=== PATIENT | female | born 1950 | race Caucasian/White ===

== ENCOUNTER 2019-12-23 23:37 | Inpatient (IN) | payer MEDICARE ==
[2019-12-24 00:43] LABS: Basophils # (A) 0.1 k/uL (0-0.2); Basophils % (A) 1 %; Eosinophils # (A) 0.1 k/uL (0-0.7); Eosinophils % (A) 1 %; HCT 40.6 % (34.0-46.0); HGB 12.7 gm/dL (11.4-16.0); Lymphocytes # (A) 1.3 k/uL (1.0-4.8); Lymphocytes % (A) 14 %; MCH 26.9 pg (25.0-35.0); MCHC 31.4 g/dL (31.0-37.0); MCV 85.9 fL (80.0-100.0); Monocytes # (A) 0.4 k/uL (0-1.0); Monocytes % (A) 4 %; Neutrophils # (A) 7.8 k/uL (1.3-7.7); Neutrophils % (A) 80 %; Platelet Count 284 k/uL (150-450); RBC 4.72 m/uL (3.80-5.40); RDW 13.2 % (11.5-15.5); WBC 9.7 k/uL (3.8-10.6)
[2019-12-24 00:52] LABS: Acetaminophen <10.0 ug/mL; African American GFR (CKD) 73 (>60 ml/min/1.73 sqM); Alcohol <10 mg/dL; Anion Gap 11 mmol/L; Blood Urea Nitrogen 17 mg/dL (7-17); Calcium 9.8 mg/dL (8.4-10.2); Carbon Dioxide 22 mmol/L (22-30); Chloride 106 mmol/L (98-107); Glucose 89 mg/dL (74-99); Non-African American GFR(CKD) 63 (>60 ml/min/1.73 sqM); Potassium 4.4 mmol/L (3.5-5.1); Salicylate <1.0 mg/dL; Sodium 139 mmol/L (137-145)
[2019-12-24 00:53] LABS: Appearance,Urine Clear (Clear); Bacteria,Urine Rare /hpf; Bilirubin,Urine Negative (Negative); Blood,Urine Negative (Negative); Color,Urine Yellow; Glucose,Urine (UA) Negative (Negative); Hyaline Casts,Urine 10 /lpf (0-2); Ketones,Urine 2+ (Negative); Leukocyte Esterase,Urine Trace (Negative); Mucus,Urine Moderate /hpf; Nitrite,Urine Negative (Negative); PH, Urine 5.5 (5.0-8.0); Protein,Urine 1+ (Negative); RBC,Urine 1 /hpf (0-5); Specific Gravity,Urine 1.019 (1.001-1.035); Squamous Epithelial Cell,Urine <1 /hpf (0-4); Urobilinogen,Urine <2.0 mg/dL (<2.0); WBC,Urine 6 /hpf (0-5)
[2019-12-24 01:01] LABS: Amphetamine Screen,Urine Not Detected (NotDetected); Barbiturate Screen,Urine Not Detected (NotDetected); Benzodiazepines Screen,Urine Not Detected (NotDetected); Cocaine Screen,Urine Not Detected (NotDetected); Methadone Screen, Urine Not Detected (NotDetected); Opiate Screen,Urine Not Detected (NotDetected); Oxycodone Screen, Urine Not Detected (NotDetected); Phencyclidine Screen,Urine Not Detected (NotDetected); Tricyclic Antidepressant,Urine Not Detected (NotDetected); Urn Cannabinoid Scrn Not Detected (NotDetected)
--- NOTE | 2019-12-24 02:18 | ED ---
Psych HPI - General Chief Complaint: Psychiatric Symptoms Stated Complaint: Mental Health Time Seen by Provider: 12/23/19 23:44 Source: family, RN notes reviewed, old records reviewed Mode of arrival: EMS Limitations: altered mental status - History of Present Illness Initial Comments: This is a 69-year-old female DF for evaluation patient poor historian secondary to not wanting to participating history taking, patient comes in for psychiatric evaluation by PD, secondary depression suicidal thoughts patient has no change in medications denies drug or alcohol abuse MD Complaint: suicidal ideation, feels depressed -: unknown Associated Psychiatric Symptoms: depression, suicidal ideation History of same: Yes Quality: intermittent Worsens With: none Associated Symptoms: denies other symptoms Treatments Prior to Arrival: placed on mental health hold If Self Harm: admits thoughts of self harm Review of Systems ROS Statement: Those systems with pertinent positive or pertinent negative responses have been documented in the HPI. ROS Other: All systems not noted in ROS Statement are negative. Past Medical History Past Medical History: Blood Disorder, CVA/TIA Additional Past Medical History / Comment(s): Bleeding ulcers History of Any Multi-Drug Resistant Organisms: None Reported Past Surgical History: No Surgical Hx Reported Past Psychological History: Depression Smoking Status: Former smoker Past Alcohol Use History: None Reported Past Drug Use History: None Reported General Exam General appearance: alert, in no apparent distress Head exam: Present: atraumatic, normocephalic, normal inspection Eye exam: Present: normal appearance, PERRL, EOMI. Absent: scleral icterus, conjunctival injection, periorbital swelling ENT exam: Present: normal exam, mucous membranes moist Neck exam: Present: normal inspection. Absent: tenderness, meningismus, lymphadenopathy Respiratory exam: Present: normal lung sounds bilaterally. Absent: respiratory distress, wheezes, rales, rhonchi, stridor Cardiovascular Exam: Present: regular rate, normal rhythm, normal heart sounds. Absent: systolic murmur, diastolic murmur, rubs, gallop, clicks GI/Abdominal exam: Present: soft, normal bowel sounds. Absent: distended, tenderness, guarding, rebound, rigid Extremities exam: Present: normal inspection, full ROM, normal capillary refill. Absent: tenderness, pedal edema, joint swelling, calf tenderness Back exam: Present: normal inspection Neurological exam: Present: alert, oriented X3, CN II-XII intact Psychiatric exam: Present: depressed, flat affect Skin exam: Present: warm, dry, intact, normal color. Absent: rash Course Vital Signs 12/23/19 23:43 Temperature 98.5 F Pulse Rate 79 Respiratory 14 Rate Blood Pressure 168/88 O2 Sat by Pulse 98 Oximetry - Reevaluation(s) Reevaluation #1: 12/24/19 03:19 Medical records reviewed Reevaluation #2: 12/24/19 03:19 Medical clear for psychiatric evaluation Medical Decision Making - Medical Decision Making 69 female seen and evaluated for psychiatric evaluation and treatment. Patient to be admitted to psychiatric unit for inpatient treatment and care - Lab Data Result diagrams: 12/24/19 00:34 12/24/19 00:34 Lab Results 12/24/19 12/24/19 12/24/19 Range/Units 00:23 00:34 00:34 WBC 9.7 (3.8-10.6) k/uL RBC 4.72 (3.80-5.40) m/uL Hgb 12.7 (11.4-16.0) gm/dL Hct 40.6 (34.0-46.0) % MCV 85.9 (80.0-100.0) fL MCH 26.9 (25.0-35.0) pg MCHC 31.4 (31.0-37.0) g/dL RDW 13.2 (11.5-15.5) % Plt Count 284 (150-450) k/uL Neutrophils % 80 % Lymphocytes % 14 % Monocytes % 4 % Eosinophils % 1 % Basophils % 1 % Neutrophils # 7.8 H (1.3-7.7) k/uL Lymphocytes # 1.3 (1.0-4.8) k/uL Monocytes # 0.4 (0-1.0) k/uL Eosinophils # 0.1 (0-0.7) k/uL Basophils # 0.1 (0-0.2) k/uL Sodium 139 (137-145) mmol/L Potassium 4.4 (3.5-5.1) mmol/L Chloride 106 (98-107) mmol/L Carbon Dioxide 22 (22-30) mmol/L Anion Gap 11 mmol/L BUN 17 (7-17) mg/dL Creatinine 0.93 (0.52-1.04) mg/dL Est GFR (CKD-EPI)AfAm 73 (>60 ml/min/1.73 sqM) Est GFR (CKD-EPI)NonAf 63 (>60 ml/min/1.73 sqM) Glucose 89 (74-99) mg/dL Calcium 9.8 (8.4-10.2) mg/dL Urine Color Yellow Urine Appearance Clear (Clear) Urine pH 5.5 (5.0-8.0) Ur Specific [place] 1.019 (1.001-1.035) Urine Protein 1+ H (Negative) Urine Glucose (UA) Negative (Negative) Urine Ketones 2+ H (Negative) Urine Blood Negative (Negative) Urine Nitrite Negative (Negative) Urine Bilirubin Negative (Negative) Urine Urobilinogen <2.0 (<2.0) mg/dL Ur Leukocyte Esterase Trace H (Negative) Urine RBC 1 (0-5) /hpf Urine WBC 6 H (0-5) /hpf Ur Squamous Epith Cells <1 (0-4) /hpf Urine Bacteria Rare H (None) /hpf Hyaline Casts 10 H (0-2) /lpf Urine Mucus Moderate H (None) /hpf Salicylates <1.0 mg/dL Urine Opiates Screen Not Detected (NotDetected) Ur Oxycodone Screen Not Detected (NotDetected) Urine Methadone Screen Not Detected (NotDetected) Ur Propoxyphene Screen Not Detected (NotDetected) Acetaminophen <10.0 ug/mL Ur Barbiturates Screen Not Detected (NotDetected) U Tricyclic Antidepress Not Detected (NotDetected) Ur Phencyclidine Scrn Not Detected (NotDetected) Ur Amphetamines Screen Not Detected (NotDetected) U Methamphetamines Scrn Not Detected (NotDetected) U Benzodiazepines Scrn Not Detected (NotDetected) Urine Cocaine Screen Not Detected (NotDetected) U Marijuana (THC) Screen Not Detected (NotDetected) Serum Alcohol <10 mg/dL Disposition Clinical Impression: Depression, Suicidal ideation Disposition: TRANSFER TO PSYCH HOSP/UNIT Condition: Fair Is patient prescribed a controlled substance at d/c from ED?: No Referrals: None,Stated [Primary Care Provider] - 1-2 days
[2019-12-24] MEDS ORDERED: LORazepam 1 MG TAB PO PRN (06:00)
[2019-12-24] MEDS ORDERED: MAGNESIUM HYDROXIDE 2,400 MG/10 ML CUP PO PRN (08:00)
[2019-12-24] MEDS ORDERED: MAG HYDROX/AL HYDROX/SIMETH 30 ML CUP PO PRN (08:00)
[2019-12-24] MEDS ORDERED: ZIPRASIDONE 20 MG VIAL IM PRN (09:00)
[2019-12-24] MEDS: ACETAMINOPHEN TAB 325 MG TAB PO PRN (09:40)
[2019-12-24] MEDS: SERTRALINE 25 MG TAB PO SCH (11:58)
--- NOTE | 2019-12-24 12:07 | P.HP ---
Psychiatric H&P - . H&P Date: 12/24/19 History & Physical: Allergies Allergy/AdvReac Type Severity Reaction Status Date / Time Penicillins Allergy Rash/Hives Verified 12/24/19 04:44 Vital Signs Temp 97.8 F 12/24/19 04:47 Pulse 84 12/24/19 04:47 Resp 15 12/24/19 04:47 BP 169/89 12/24/19 04:47 Pulse Ox 98 12/24/19 04:47 Intake & Output 12/23/19 12/24/19 12/24/19 18:59 06:59 18:59 Weight 75.438 kg Laboratory Last Values WBC 9.7 k/uL (3.8-10.6) 12/24/19 00:34 RBC 4.72 m/uL (3.80-5.40) 12/24/19 00:34 Hgb 12.7 gm/dL (11.4-16.0) 12/24/19 00:34 Hct 40.6 % (34.0-46.0) 12/24/19 00:34 MCV 85.9 fL (80.0-100.0) 12/24/19 00:34 MCH 26.9 pg (25.0-35.0) 12/24/19 00:34 MCHC 31.4 g/dL (31.0-37.0) 12/24/19 00:34 RDW 13.2 % (11.5-15.5) 12/24/19 00:34 Plt Count 284 k/uL (150-450) 12/24/19 00:34 Neutrophils % 80 % 12/24/19 00:34 Lymphocytes % 14 % 12/24/19 00:34 Monocytes % 4 % 12/24/19 00:34 Eosinophils % 1 % 12/24/19 00:34 Basophils % 1 % 12/24/19 00:34 Neutrophils # 7.8 k/uL (1.3-7.7) H 12/24/19 00:34 Lymphocytes # 1.3 k/uL (1.0-4.8) 12/24/19 00:34 Monocytes # 0.4 k/uL (0-1.0) 12/24/19 00:34 Eosinophils # 0.1 k/uL (0-0.7) 12/24/19 00:34 Basophils # 0.1 k/uL (0-0.2) 12/24/19 00:34 Sodium 139 mmol/L (137-145) 12/24/19 00:34 Potassium 4.4 mmol/L (3.5-5.1) 12/24/19 00:34 Chloride 106 mmol/L (98-107) 12/24/19 00:34 Carbon Dioxide 22 mmol/L (22-30) 12/24/19:34 Anion Gap 11 mmol/L 12/24/19 00:34 BUN 17 mg/dL (7-17) 12/24/19 00:34 Creatinine 0.93 mg/dL (0.52-1.04) 12/24/19 00:34 Est GFR (CKD-EPI)AfAm 73 (>60 ml/min/1.73 sqM) 12/24/19 00:34 Est GFR (CKD-EPI)NonAf 63 (>60 ml/min/1.73 sqM) 12/24/19 00:34 Glucose 89 mg/dL (74-99) 12/24/19 00:34 Calcium 9.8 mg/dL (8.4-10.2) 12/24/19 00:34 Urine Color Yellow 12/24/19 00:23 Urine Appearance Clear (Clear) 12/24/19: Urine pH 5.5 (5.0-8.0) 12/24/19: Ur Specific [place] 1.019 (1.001-1.035) 12/24/19 00: Urine Protein 1+ (Negative) H 12/24/19 00: Urine Glucose (UA) Negative (Negative) 12/24/19: Urine Ketones 2+ (Negative) H 12/24/19 00: Urine Blood Negative (Negative) 12/24/19: Urine Nitrite Negative (Negative) 12/24/19: Urine Bilirubin Negative (Negative) 12/24/19: Urine Urobilinogen <2.0 mg/dL (<2.0) 12/24/19: Ur Leukocyte Esterase Trace (Negative) H 12/24/19 00: Urine RBC 1 /hpf (0-5) 12/24/19 00: Urine WBC 6 /hpf (0-5) H 12/24/19 00:23 Ur Squamous Epith Cells <1 /hpf (0-4) 12/24/19 00:23 Urine Bacteria Rare /hpf (None) H 12/24/19 00:23 Hyaline Casts 10 /lpf (0-2) H 12/24/19 00:23 Urine Mucus Moderate /hpf (None) H 12/24/19 00:23 Salicylates <1.0 mg/dL 12/24/19 00:34 Urine Opiates Screen Not Detected (NotDetected) 12/24/19 00:23 Ur Oxycodone Screen Not Detected (NotDetected) 12/24/19 00:23 Urine Methadone Screen Not Detected (NotDetected) 12/24/19 00:23 Ur Propoxyphene Screen Not Detected (NotDetected) 12/24/19 00:23 Acetaminophen <10.0 ug/mL 12/24/19 00:34 Ur Barbiturates Screen Not Detected (NotDetected) 12/24/19 00:23 U Tricyclic Antidepress Not Detected (NotDetected) 12/24/19 00:23 Ur Phencyclidine Scrn Not Detected (NotDetected) 12/24/19 00:23 Ur Amphetamines Screen Not Detected (NotDetected) 12/24/19 00:23 U Methamphetamines Scrn Not Detected (NotDetected) 12/24/19 00:23 U Benzodiazepines Scrn Not Detected (NotDetected) 12/24/19 00:23 Urine Cocaine Screen Not Detected (NotDetected) 12/24/19 00:23 U Marijuana (THC) Screen Not Detected (NotDetected) 12/24/19 00:23 Serum Alcohol <10 mg/dL 12/24/19 00:34 12/24/19 11:59 IDENTIFYING DATA: Patient is a 69-year-old female who currently lives with her daughter and her daughter's children. HPI: Patient presented to the hospital yesterday and was noted by ER report to be a poor historian and was brought in for depressive thoughts along with suicidal ideations. Patient was petitioned by who stated the patient "walked barefoot into the [place] and tried to throw herself down the stairs", petition also stated that patient "tried to jump out of the window". Patient was agreeable to be seen by continuity writer today and was somewhat directable however was demanding discharge several times at minimizing her symptoms. Patient did have difficulties expressing her thoughts and appeared to have expressive aphasia an claims that it is secondary to her previous CVA. She did mention that her daughter brought her in because her daughter was "having thoughts about me" and "want to get rid of me". She spoke about wanting to go back home and go into her "nunez in the yard". She also claims that she was looking at a picture of her and when speaking of her who 10 years ago states that she has been missing him more recently and was tearful at that time. Patient did have poor insight and judgment and was impulsive during the interview. Patient denies any suicidal or homicidal ideations intent or plan. At this time patient denies any auditory or visual hallucinations. Patient denies using any recreational drugs. PAST PSYCHIATRIC HISTORY: Patient states that she has suffered from depression in the past however denies any outpatient psychiatric follow-up or any medications in the past. She denies any psychiatric hospitalizations or any suicide attempts in the past. 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 Patient is currently and has a daughter whom she lives with and her daughter's kids. MENTAL STATUS EXAM: General Appearance: Patient appears to be stated age is alert, hostile/argumentative and difficult to redirect at times. Patient appears to have poor hygiene and grooming. Behavior: Patient is seated without any agitated behavior. Hostile with continuity writer. Speech: Difficulties with expressing her thoughts and certain words. Mood/Affect: Patient reports their mood is depressed, affect is congruent Suicidality/Homicidality: Patient denies having any homicidal ideation intent or plan. Denies any suicidal ideations intent or plan Perceptions: Patient denies any visual hallucinations and denies any auditory hallucinations Though content/process: There is no evidence of any delusional thought content and thought process is disjointed and patient has difficulty expressing her thoughts and saying certain words. Memory and concentration: AOX3, grossly intact for the purposes of this session. Can spell "WORLD" backwards Judgment and insight: poor/impulsive. STRENGTHS/WEAKNESSES: strength is that patient is resilient. Weakness is that patient has poor judgment and is impulsive INTELLECT: average IMPRESSIONS: Depressive disorder unspecified, rule out secondary to general medical condition. History of CVA PLAN: -Patient is admitted under in voluntary status to MHU for stabilization of psychiatric symptoms and safety. A second certification was completed and along with petition will be filed for court. Patient declined signing for any of the medications. -Medications : Will start patient on Zoloft 25 mg daily for mood/anxiety. Tr azodone 25 mg daily at bedtime for insomnia/mood. We'll consider adding mood stabilizer such as Depakote in the next few days if patient remains impulsive and labile. -Geodon PRN for agitation/aggression -Patient was informed of the risks, benefits and side effects of the medication and patient verbally consented to taking the medications. Patient signed med consent form and was placed in chart. -Internal Medicine consult to perform medical evaluation and physical. -NRT -not need this patient does not smoke -SW on board for discharge planning. Encourage patient to participate in groups to work on coping skills.
--- NOTE | 2019-12-24 13:05 | P.HPMEDMHU ---
History of Present Illness H&P Date: 12/24/19 Chief Complaint: aggression patient is a 69-year-old female with history of a stroke 2 years ago and gastric ulcers who was brought in on a petition by her daughter for walking barefoot in the [place], trying to throw herself down the stairs, and trying to jump out a window. She is sometimes better image the mental health unit. patient seen and examined at bedside.initially when I ask if we can talk she states she has problems speaking after her stroke. When asked her how long ago show quite she holds up 2 fingers. She confirms with me that her stroke was 2 years ago. She indicates that she has had trouble verbalizing Fen/Phen. I asked her if she had a history of diabetes which she denies, she denies history of high blood pressure, she denies history of high cholesterol. I asked her where they thought the stroke came from. She states that they didn't know. She is unable to tell me she is on any medications. She was able to indicate that she has a history of an ulcer. She is also able to indicate to me that she feels frustrated when trying to speak. She is able to answer yes no questions consistently. She denies any headaches, blurriness, nausea, vomiting, diarrhea, or constipation. She is alert and aware of her surroundings. She appears to communicate appropriately. Past Medical History Past Medical History: CVA/TIA Additional Past Medical History / Comment(s): Bleeding ulcers History of Any Multi-Drug Resistant Organisms: None Reported Past Surgical History: No Surgical Hx Reported Smoking Status: Former smoker - Past Family History Mother Family Medical History: No Reported History Medications and Allergies Home Medications Medication Instructions Recorded Confirmed Type No Known Home Medications 12/24/19 12/24/19 History Allergies Allergy/AdvReac Type Severity Reaction Status Date / Time Penicillins Allergy Rash/Hives Verified 12/24/19 04:44 Physical Exam Osteopathic Statement: *. No significant issues noted on an osteopathic structural exam other than those noted in the History and Physical/Consult. Vitals: Vital Signs Temp Pulse Pulse Resp BP BP Pulse Ox 12/24/19 04:47 97.8 F 84 15 169/89 98 12/23/19 23:43 98.5 F 79 14 168/88 98 Intake and Output 12/23/19 12/24/19 12/24/19 22:59 06:59 14:59 Other: Weight 75.438 kg General: non toxic, no distress, appears at stated age Derm: warm, dry Head: atraumatic, normocephalic, symmetric Eyes: EOMI, no lid lag, anicteric sclera Mouth: no lip lesion, mucus membranes moist Cardiovascular: S1S2 reg, no murmur, positive posterior tibial pulse bilateral, Lungs: CTA bilateral, no rhonchi, no rales , no accessory muscle use Abdominal: soft, nontender to palpation, no guarding, no appreciable organomegaly Ext: no gross muscle atrophy, no edema, no contractures Neuro: left sided facial droop, msucles strength 5/5 b/l UE and LE Psych: Alert, oriented, appropriate affect Cranial Nerve Examination - Cranial Nerves Cranial Nerve II- Optic: Intact Cranial Nerve III- Oculomotor: Intact Cranial Nerve IV- Trochlear: Intact Cranial Nerve V- Trigeminal: Intact Cranial Nerve - Abducens: Intact Cranial Nerve VII- Facial: Impaired Cranial Nerve VIII- Auditory: Intact Cranial Nerve IX- Glossopharyngeal: Intact Cranial Nerve X- Vagus: Intact Cranial Nerve XI- Accessory: Intact Cranial Nerve XII- Hypoglossal: Impaired Results CBC & Chem 7: 12/24/19 00:34 12/24/19 00:34 Labs: Abnormal Lab Results - Last 24 Hours (Table) 12/24/19 12/24/19 Range/Units 00:23 00:34 Neutrophils # 7.8 H (1.3-7.7) k/uL Urine Protein 1+ H (Negative) Urine Ketones 2+ H (Negative) Ur Leukocyte Esterase Trace H (Negative) Urine WBC 6 H (0-5) /hpf Urine Bacteria Rare H (None) /hpf Hyaline Casts 10 H (0-2) /lpf Urine Mucus Moderate H (None) /hpf Thrombosis Risk Factor Assmnt - DVT/VTE Prophylaxis DVT/VTE Prophylaxis: Low risk, early ambulation encouraged Assessment and Plan Assessment: Prior CVA with resultant facial droop concern for aphasia - concern that cognitive deficit or aphasia may be affecting mood/behaviors - Consult Speech therapy - verify home meds that patient is not on ASA and statin at baseline [facility]
[2019-12-24] MEDS: traZODone HCL 50 MG TAB PO SCH (21:40)
[2019-12-24] MEDS: ATORVASTATIN 40 MG TAB PO SCH (21:40)
[2019-12-25] MEDS: SERTRALINE 25 MG TAB PO SCH (08:10)
[2019-12-25] MEDS: ASPIRIN 81 MG PO SCH (08:10)
[2019-12-25 08:13] LABS: Albumin 4.2 g/dL (3.5-5.0); Total Protein 7.3 g/dL (6.3-8.2)
[2019-12-25 09:06] LABS: Bilirubin,Unconjugated 0.4 mg/dL (0.0-1.1); Total Bilirubin 0.4 mg/dL (0.2-1.3)
--- NOTE | 2019-12-25 10:15 | P.PN ---
Progress Note - Text Progress Note Date: 12/25/19 Interval History: Patient was seen laying down in bed this morning and was directable and agreea ble to speak with ticket writer in the office. Patient appears to be more directable and cooperative during interview and was more appropriate. She continues to have difficulties with her expressive aphasia and comprehensive of certain questions. She claims that her mood has been getting better and denied any anxiety at this time. She did state that she slept better last night. She claims the she will be trying to reach out to her daughter sometime today over the phone. Patient was focused on discharge however was agreeable to stay over the weekend. She claims that she did not go to any groups and was encouraged to do so today. She states that her appetite is fair. At this time patient denies any suicidal or homical ideations, intent or plan. Patient denies any auditory, visual hallucinations and denies any paranoia or delusions. Patient denies any side effects from the medications and has been compliant with meds. Mental Status Exam: General Appearance: Patient appears to be stated age is alert, more directable and attempts to cooperate today. Patient appears to have poor hygiene and grooming. Behavior: Patient is seated without any agitated behavior. Less argumentative. Improvement in impulsivity. Speech: Difficulties with expressing her thoughts and certain words. Mood/Affect: Patient reports their mood is depressed, mildly improving, affect is congruent Suicidality/Homicidality: Patient denies having any homicidal ideation intent or plan. Denies any suicidal ideations intent or plan Perceptions: Patient denies any visual hallucinations and denies any auditory melgar llucinations. Though content/process: There is no evidence of any delusional thought content and thought process is disjointed and patient has difficulty expressing her thoughts and saying certain words. Memory and concentration: AOX3, grossly intact for the purposes of this session Judgment and insight: poor/impulsive, improving mildly Assessment Depressive disorder unspecified, rule out secondary to general medical condition History of CVA Plan: -Patient continues to meet criteria for inpatient psychiatric admission for symptom stabilization and safety. A second certification was completed and along with petition will be filed for court. Awaiting deferral and court date. Patient declined signing for any of the medications. -Medications: We'll increase Zoloft to 50 mg daily for mood/anxiety. Continue trazodone 25 mg daily at bedtime for insomnia/mood. -When necessary Geodon for agitation/aggression. -Appreciate internal medicine recommendations and started patient on aspirin and statin for secondary prevention of CVA. Suggest that patient work with speech therapist upon discharge. -NRT -not need this patient does not smoke. -SW on board for discharge planning. Encouraged the patient to participate in milieu.
--- NOTE | 2019-12-25 12:13 | P.CNNES ---
History of Present Illness Consult date: 12/25/19 Requesting physician: Margaux Knutson Reason for Consult: Aphasia with prior stroke History of Present Illness: Patient is a 69-year-old right-handed female brought to the hospital yesterday by PD for psychiatric evaluation, depression suicidal thoughts. Patient apparently was walking barefoot in the [place], trying to throw herself down the stairs and trying to jump out of a window. Patient does have history of stroke TIA 2 years ago. Patient had mentioned that she has difficulty speaking after her stroke. Patient denies history of hypertension, diabetes or hypercholesterolemia. Patient states that she used to take aspirins a lot for chronic headaches. She ended up with GI bleed 2 years ago. She was critically sick, in ICU for 3 days. Afterwards she was sent to a rehab. While in rehab unit, she had an acute stroke. Patient developed expressive aphasia, right-sided visual field deficit, decreased dexterity of right upper extremity. Patient states that she has been stable since her stroke. She has trouble with talking at times although she can express most of the time. She cannot read, and is learning to write. Patient states that she has to focus on the right arm to to move where she wants it to go. Patient's blood test shows normal CBC, CMP, total cholesterol is 231, LDL 153, HDL 58 and triglycerides 101. UA, urine drug screen and blood alcohol level negative. TSH is decreased 0.242. Patient has history of smoking 1 pack per day since age 14, quit 2 years ago (50 pack years). Her blood pressure was 168/88 on arrival. Now it is 112/69. Review of Systems Patient denies any headache. Does have visual disturbances denies any chest pain shortness of breath wheezing or cough. Denies neck pain and back pain. Denies abdominal pain, nausea vomiting diarrhea. All other review of systems unremarkable. Past Medical History Past Medical History: CVA/TIA Additional Past Medical History / Comment(s): Bleeding ulcers History of Any Multi-Drug Resistant Organisms: None Reported Past Surgical History: No Surgical Hx Reported Past Psychological History: Depression Smoking Status: Current every day smoker Past Alcohol Use History: None Reported Past Drug Use History: None Reported - Past Family History Mother Family Medical History: No Reported History Medications and Allergies Home Medications Medication Instructions Recorded Confirmed Type No Known Home Medications 12/24/19 12/24/19 History Allergies Allergy/AdvReac Type Severity Reaction Status Date / Time Penicillins Allergy Rash/Hives Verified 12/24/19 04:44 Physical Examination - Vital Signs Vital Signs: Vital Signs Temp Pulse Resp BP Pulse Ox 12/25/19 05:32 98.9 F 102 H 15 112/69 99 12/24/19 22:14 97.8 F 12/24/19 18:40 97.9 F 12/24/19 12:41 97.2 F L Intake and Output 12/24/19 12/25/19 12/25/19 22:59 06:59 14:59 Other: Weight 75.438 kg On examination patient is an elderly female, in no distress. Patient is alert and awake. Patient's speech is clear with no dysarthria. Patient's comprehension is intact. Patient cannot read, cannot write. She was able to name 3/4 objects presented (except earlobe). Patient was able to repeat only short sentences, but had problems with repeating longer sentences. Patient states the year is 1010, then when I asked again said it was 3131. Patient could not tell what month, but when I give her choices, said was October. Patient not able to name the formerly [facility], [facility] or the president, but when I gave her choices, she did pick the right choice. Patient has some paraphasic errors while speaking. She often speaks fluently, but then sometimes have word finding problem and paraphasic errors. On cranial nerve examination pupils are round and reactive to light, visual simons reveal right homonymous hemianopia. Extraocular muscles are intact. Face is symmetric, tongue protrudes the midline. Palatal elevation and sensation normal. On muscle strength testing patient has right pronation, no drift. The strength appears normal in the arms and legs distally and proximally. Reflexes are 2 in the upper limbs, 2 at the knees 1 ankles and plantars downgoing. Sensory touch and temperature is decreased in the right side of the face and the right arm but is equal in the lower legs. Patient has mild tremulousness for [id number] on the right although no obvious ataxia. Rapid finger tapping is decreased on the right. Tone is slightly increased in the right upper limb. Bulk of muscles normal. She walks fairly steadily. There is no carotid bruit or murmur. Peripheral pulses are present. No p eripheral edema. Chest is clear. Abdomen soft nontender. 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 * Hypertension * Hyperlipidemia * Low TSH, suggestive of mild hyperthyroidism. * Depression, with suicidal thoughts. * X tobacco use of 50 pack years, quit 2 years ago. Plan: * Patient has history of a stroke 2 years ago with some residual deficits as mentioned above. At present patient's neurological examination appears stable. I did not hear any obvious bruit or murmur. No further workup indicated. * Agree with starting aspirin 81 mg daily and Lipitor 40 mg for secondary stroke prevention. * Patient's blood pressure was quite elevated on arrival. Need to closely monitor her blood pressure and may need antihypertensive agent. * Hemoglobin A1c 5.1. * Consider further evaluation of abnormal thyroid functions. * Other management as per psychiatry. * Neurology will sign off. Please call neurology if any further concerns.
[2019-12-25 16:26] LABS: Hemoglobin A1C 5.1 % (4.0-6.0)
[2019-12-25] MEDS: ACETAMINOPHEN TAB 325 MG TAB PO PRN (16:42)
[2019-12-25] MEDS: traZODone HCL 50 MG TAB PO SCH (21:11)
[2019-12-25] MEDS: ATORVASTATIN 40 MG TAB PO SCH (21:12)
[2019-12-26] MEDS: ASPIRIN 81 MG PO SCH (07:40)
[2019-12-26] MEDS: SERTRALINE 50 MG TAB PO SCH (07:40)
--- NOTE | 2019-12-26 11:13 | P.PN ---
Progress Note - Text Interval history: The patient is found in her room she follows me to an interview room. She indicates that her mood is good today. She was admitted with concerns that she was having suicidal ideation with consideration of plan. She states that she has no suicidal ideation intent or plan. Staff reported that she slept 8 hours. Appetite stable. She has been seen by neurology. She does have a history of cerebral vascular accident with expressive aphasia. She indicates that she has been attending groups. She has no questions or concerns regarding psychotropic medication. Mental status exam: The patient is a female appearing her stated age. She has short hair she is dressed in her own clothing hygiene grooming adequate. Eye contact is good. Speech is fluent and spontaneous she does struggle with word finding as part of her aphasia. Otherwise she appears to be compensating fairly well. Her affect is bright and appropriately reactive. She is reporting no suicidal ideation intent or plan. She is reporting no auditory or visual hallucinations she is endorsing no specific delusions. There is no observed evidence of psychosis during our session. She demonstrates no tangential thinking loose associations or flight of ideas. She demonstrates no verbal or physical aggressiveness. Plan: The patient will continue on her current psychotropic medications. Encouraged to fully participate in the milieu. We will monitor her for safety. Vital signs reviewed.
[2019-12-26] MEDS: traZODone HCL 50 MG TAB PO SCH ×2 (19:55→21:21)
[2019-12-26] MEDS: ATORVASTATIN 40 MG TAB PO SCH ×2 (19:55→21:21)
[2019-12-27] MEDS: ASPIRIN 81 MG PO SCH (08:42)
[2019-12-27] MEDS: SERTRALINE 50 MG TAB PO SCH (08:43)
--- NOTE | 2019-12-27 12:58 | P.PN ---
Progress Note - Text Interval history: The patient is found in her room she follows me to an interview room. She indicates that she is doing fine. She states that she refused the Zoloft today and she will continue to refuse it. She states she does not need any medication and she is doing fine. Staff reports she slept 8 hours she has been eating she reports some participation in groups. Mental status exam: The patient's alert she is dressed in her own clothing eye contact is appropriate. She communicates fairly well given her history of expressive aphasia. She states her mood is fine affect is bright she denies having any suicidal or homicidal ideation intent or plan. She was mildly irritable in discussing how the medication may help her. She demonstrated no verbal or physical aggressiveness however. She is endorsing no auditory or visual hallucinations she is endorsing no specific delusions. There is no observed evidence of psychosis. Plan: The patient will continue to be offered the medication. I attempted to discuss the relationship between stroke and depression but she is not willing to participate in a conversation. She indicates she will continue to refuse medication. We will monitor her for safety and encourage full participation in the milieu. Vital signs reviewed.
[2019-12-27] MEDS: traZODone HCL 50 MG TAB PO SCH (21:17)
[2019-12-27] MEDS: ATORVASTATIN 40 MG TAB PO SCH (21:18)
[2019-12-28] MEDS: ACETAMINOPHEN TAB 325 MG TAB PO PRN ×2 (03:42→17:47)
[2019-12-28 03:52] VITALS: RESP 17
[2019-12-28] MEDS: ASPIRIN 81 MG PO SCH (08:53)
[2019-12-28] MEDS: SERTRALINE 50 MG TAB PO SCH (08:53)
--- NOTE | 2019-12-28 10:28 | P.PN ---
Progress Note - Text Progress Note Date: 12/28/19 Interval History: Patient was seen taking part in group this morning and was directable and agre eable to speak with rewriter in the office. Patient appeared to be louder this morning and was superficially cooperative with rewriter. She states that she skipped her medications yesterday as she feels "I didn't think I needed it but I took it today so that you could discharge me". She claims that she has not been talking to her daughter and states that "how my source to talk to her she doesn't want to talk to me". She continues to focus on discharge and continues to be irrational and upset at times with rewriter. She continues to have difficulties with her expressive aphasia and comprehensive of certain questions. She claims that her mood is "fine" and denies any anxiety. She continues to deny being suicidal at home and states that "I was just going to look at nunez". She states that she was able to sleep throughout the night with no complaints. She states that her appetite is fair. At this time patient denies any suicidal or homical ideations, intent or plan. Patient denies any auditory, visual hallucinations and denies any paranoia or delusions. Patient denies any side effects from the medications and has been compliant with meds. Mental Status Exam: General Appearance: Patient appears to be stated age is alert, superficially cooperative, argumentative with rewriter. Patient appears to have fair hygiene and grooming. Behavior: Patient is seated without any agitated behavior. Argumentative and impulsive today. Speech: Difficulties with expressing her thoughts and certain words. Mood/Affect: Patient reports their mood is "fine", affect is incongruent Suicidality/Homicidality: Patient denies having any homicidal ideation intent or plan. Denies any suicidal ideations intent or plan Perceptions: Patient denies any visual hallucinations and denies any auditory hallucinations. Though content/process: There is no evidence of any delusional thought content and thought process is disjointed and patient has difficulty expressing her thoughts and saying certain words. Focused on discharge. Memory and concentration: AOX3, grossly intact for the purposes of this session Judgment and insight: poor/impulsive, improving mildly Assessment Depressive disorder unspecified, rule out secondary to general medical condition History of CVA Plan: -Patient continues to meet criteria for inpatient psychiatric admission for symptom stabilization and safety. Patient has deferred court. Patient declined signing for any of the medications. -Medications: We'll increase Zoloft to 100 mg daily for mood/anxiety. Continue trazodone 25 mg daily at bedtime for insomnia/mood. -When necessary Geodon for agitation/aggression. -Appreciate internal medicine recommendations and started patient on aspirin and statin for secondary prevention of CVA. Suggest that patient work with speech therapist upon discharge. -NRT -not need this patient does not smoke. -SW on board for discharge planning. Encouraged the patient to participate in milieu. refuge worker to get in touch with patient's daughter today and allow daughter to speak with patient to evaluate further discharge planning. Likely discharge in 1-2 days.
[2019-12-28] MEDS: ATORVASTATIN 40 MG TAB PO SCH (20:13)
[2019-12-28] MEDS: traZODone HCL 50 MG TAB PO SCH (20:13)
[2019-12-29] MEDS: SERTRALINE 100 MG TAB PO SCH (08:03)
[2019-12-29] MEDS: ASPIRIN 81 MG PO SCH (08:03)
--- NOTE | 2019-12-29 11:22 | P.PN ---
Progress Note - Text Progress Note Date: 12/29/19 Interval History: Patient was seen taking part in group this morning and was working on a puzzle alone and was directable and agreeable to speak with contract technical writer in the office. Patient appeared to be calmer this morning however did have mild improvement in her irritability. She claims that she has been taking her medications and offers no overnight complaints. She states that she was able to sleep fairly well throughout the night. She claims that she has not been talking to her daughter while she's been in the hospital. Patient continues to be preoccupied with discharge however was agreeable to not being discharged today. She spoke about mainly sitting back in group and listening and claims that "I just don't want to talk". She continues to have difficulties with her expressive aphasia and comprehensive of certain questions. She claims that her mood is "ok" and denies any anxiety. She states that her appetite is fair. At this time patient denies any suicidal or homical ideations, intent or plan. Patient denies any auditory, visual hallucinations and denies any paranoia or delusions. Patient denies any side effects from the medications and has been compliant with meds. Mental Status Exam: General Appearance: Patient appears to be stated age is alert, more cooperative, less irritable today. Patient appears to have fair hygiene and grooming. Behavior: Patient is seated without any agitated behavior. More cooperative and less irritable. Speech: Difficulties with expressing her thoughts and certain words. Mood/Affect: Patient reports their mood is "ok", affect is incongruent Suicidality/Homicidality: Patient denies having any homicidal ideation intent or plan. Denies any suicidal ideations intent or plan Perceptions: Patient denies any visual hallucinations and denies any auditory hallucinations. Though content/process: There is no evidence of any delusional thought content and thought process is disjointed and patient has difficulty expressing her thoughts and saying certain words. Focused on discharge. Memory and concentration: AOX3, grossly intact for the purposes of this session Judgment and insight: improving mildly Assessment Depressive disorder unspecified, rule out secondary to general medical condition History of CVA Plan: -Patient continues to meet criteria for inpatient psychiatric admission for symptom stabilization and safety. Patient has deferred court. Patient declined signing for any of the medications. -Medications: We'll continue with Zoloft to 100 mg daily for mood/anxiety. Continue trazodone 25 mg daily at bedtime for insomnia/mood. -When necessary Geodon for agitation/aggression. -Appreciate internal medicine recommendations and started patient on aspirin and statin for secondary prevention of CVA. Suggest that patient work with speech therapist upon discharge. -NRT -not need this patient does not smoke. -SW on board for discharge planning. Encouraged the patient to participate in milieu. tray worker to get in touch with patient's daughter today once again to follow up on patient's condition and likely plan for patient's discharge tomorrow back home.
[2019-12-29] MEDS: ACETAMINOPHEN TAB 325 MG TAB PO PRN ×2 (19:34→23:05)
[2019-12-29] MEDS: traZODone HCL 50 MG TAB PO SCH (21:09)
[2019-12-29] MEDS: ATORVASTATIN 40 MG TAB PO SCH (21:09)
[2019-12-29 22:20] VITALS: TEMP 97.6
[2019-12-30 00:06] VITALS: BP 136/58; PULSE 65
[2019-12-30] MEDS: ACETAMINOPHEN TAB 325 MG TAB PO PRN ×2 (03:00→07:45)
[2019-12-30] MEDS: ASPIRIN 81 MG PO SCH (07:45)
[2019-12-30] MEDS: SERTRALINE 100 MG TAB PO SCH (07:45)
--- NOTE | 2019-12-30 09:37 | P.DS ---
Providers Date of admission: 12/24/19 04:21 Expected date of discharge: 12/30/19 Attending physician: Raheel Snow MD Consults: 12/24/19 04:24 Consult Physician Routine Consulting Provider: Malachi Baker Consult Reason/Comments: Medical H and P Do you want consulting provider notified?: Yes 12/24/19 15:10 Consult Physician Routine Consulting Provider: Octavio Cardona Consult Reason/Comments: aphasia with prior stroke -see speech notes Do you want consulting provider notified?: Yes Primary care physician: Stated None - Discharge Diagnosis(es) (1) Major depressive disorder without psychotic features Current Visit: Yes Status: Acute Priority: High Hospital Course: Admission HPI: Patient is a 69-year-old female who currently lives with her daughter and her daughter's children. Patient presented to the hospital yesterday and was noted by ER report to be a poor historian and was brought in for depressive thoughts along with suicidal ideations. Patient was petitioned by who stated the patient "walked barefoot into the [place] and tried to throw herself down the stairs", petition also stated that patient "tried to jump out of the window". Patient was agreeable to be seen by senior writer today and was somewhat directable however was demanding discharge several times at minimizing her symptoms. Patient did have difficulties expressing her thoughts and appeared to have expressive aphasia an claims that it is secondary to her previous CVA. She did mention that her daughter brought her in because her daughter was "having thoughts about me" and "want to get rid of me". She spoke about wanting to go back home and go into her "nunez in the yard". She also claims that she was looking at a picture of her and when speaking of her who 10 years ago states that she has been missing him more recently and was tearful at that time. Patient did have poor insight and judgment and was impulsive during the interview. Patient denies any suicidal or homicidal ideations intent or plan. At this time patient denies any auditory or visual hallucinations. Patient denies using any recreational drugs. Hospital course: Upon admission to the unit patient was initially irritable and depressed. Patient did not sign voluntary and ended up deferring court. She was however directable and agreeable to commence treatment afterwards. Patient got along well with other patients on the unit and followed unit protocol. Patient was compliant with the medications and denied any side effects throughout hospital course. Patient was started on Zoloft and titrated up to a dose of 100 mg daily for mood/anxiety, trazodone 25 mg nightly for insomnia/mood. Patient spoke of her stressors and engaged in therapy both group and individual. Patient was also seen by medical team for history and physical exam. Due to patient's hist ory of stroke, neurology consult was placed and recommendations were to do no further workup after physical exam and patient was placed on aspirin 81 mg daily and Lipitor 40 mg for secondary stroke prevention. Patient's hemoglobin A1c was 5.1. Throughout the course of the hospitalization patient gradually improved with regards to mood, irritability, sleep and became future oriented with improved insight and judgment. On the day of discharge patient denied any suicidal or homicidal ideations intent or plan denied any auditory or visual hallucinations. Patient endorsed wanting to live for her grandson and her daughter. The patient denied any access to guns or weapons. Patient denied any paranoia and did not endorse any delusions. Patient does not have a significant history of substance abuse however was counseled on abstaining from all substances including alcohol and marijuana. Patient was also counseled on the medications and need for regular compliance and was encouraged to follow-up with their outpatient appointment for mental health and also for primary care. Prior to discharge a family meeting will be arranged by psych social worker to answer any questions and ensure safety upon discharge. Mental status exam: General Appearance: Patient appears to be stated age is alert, directable, and cooperative. Patient is in no acute distress and has fair hygiene and grooming Behavior: Patient is calmly seated without any agitated behavior. Speech: Patient's speech is nonpressured. Difficulty expressing her thoughts and certain words. Mood/Affect: Patient reports their mood is "good", affect is congruent and euthymic. Suicidality/Homicidality: Patient denies having any suicidal or homicidal ideation intent or plan. Perceptions: Patient denies any auditory or visual hallucinations. Though content/process: There is no evidence of any delusional thought content and thought process is linear and goal-directed. Patient has difficulty expressing certain words and thoughts. Future oriented. Memory and concentration: AOX3, grossly intact for the purposes of this session. Can spell "WORLD" backwards correctly. Judgment and insight: Improved with guarded prognosis Impression: Major depressive disorder, without psychotic features Plan: -Continue with discharge today as patient has improved and stabilized psychiatrically and is not currently an imminent threat to herself and/or others. -Continue medications: Zoloft 100 mg daily for mood/anxiety, trazodone 25 mg daily at bedtime for insomnia/mood. -Patient was counseled on the need for medication compliance and appropriate follow-up at mental health and also primary care for medical issues. Patient verbalized understanding and agreed. -Social work to arrange for and conduct family meeting to ensure safety upon discharge and answer any questions/concerns. Social work also to arrange for patients follow up appointments with [facility] for psychiatric care along with follow up with primary care provider. Recommendation by internal medicine was to have patient engage with speech therapy upon discharge to help her with her expressive aphasia. -Patient counseled on abstaining from recreational drugs and marijuana and alcohol. Was informed/educated on the adverse effects on their physical and mental health. Patient verbally agreed and understood. -Patient was instructed to return to the hospital or seek immediate medical care if their psychiatric or medical symptoms do worsen or reoccur. Allergies Allergy/AdvReac Type Severity Reaction Status Date / Time Penicillins Allergy Rash/Hives Verified 12/24/19 04:44 Laboratory Results WBC 9.7 k/uL (3.8-10.6) 12/24/19 00:34 RBC 4.72 m/uL (3.80-5.40) 12/24/19 00:34 Hgb 12.7 gm/dL (11.4-16.0) 12/24/19 00:34 Hct 40.6 % (34.0-46.0) 12/24/19 00:34 MCV 85.9 fL (80.0-100.0) 12/24/19 00:34 MCH 26.9 pg (25.0-35.0) 12/24/19 00:34 MCHC 31.4 g/dL (31.0-37.0) 12/24/19 00:34 RDW 13.2 % (11.5-15.5) 12/24/19 00:34 Plt Count 284 k/uL (150-450) 12/24/19 00:34 Neutrophils % 80 % 12/24/19 00:34 Lymphocytes % 14 % 12/24/19 00:34 Monocytes % 4 % 12/24/19 00:34 Eosinophils % 1 % 12/24/19 00:34 Basophils % 1 % 12/24/19 00:34 Neutrophils # 7.8 k/uL (1.3-7.7) H 12/24/19 00:34 Lymphocytes # 1.3 k/uL (1.0-4.8) 12/24/19 00:34 Monocytes # 0.4 k/uL (0-1.0) 12/24/19 00:34 Eosinophils # 0.1 k/uL (0-0.7) 12/24/19 00:34 Basophils # 0.1 k/uL (0-0.2) 12/24/19 00:34 Sodium 139 mmol/L (137-145) 12/24/19 00:34 Potassium 4.4 mmol/L (3.5-5.1) 12/24/19 00:34 Chloride 106 mmol/L (98-107) 12/24/19 00:34 Carbon Dioxide 22 mmol/L (22-30) 12/24/19 00:34 Anion Gap 11 mmol/L 12/24/19 00:34 BUN 17 mg/dL (7-17) 12/24/19 00:34 Creatinine 0.93 mg/dL (0.52-1.04) 12/24/19 00:34 Est GFR (CKD-EPI)AfAm 73 (>60 ml/min/1.73 sqM) 12/24/19 00:34 Est GFR (CKD-EPI)NonAf 63 (>60 ml/min/1.73 sqM) 12/24/19 00:34 Glucose 89 mg/dL (74-99) 12/24/19 00:[address] Glu mg/dL 100 12/25/19 07:25 Hemoglobin A1c 5.1 % (4.0-6.0) 12/25/19 07:25 Calcium 9.8 mg/dL (8.4-10.2) 12/24/19 00:34 Total Bilirubin 0.4 mg/dL (0.2-1.3) 12/25/19 07:25 Conjugated Bilirubin 0.0 mg/dL (0.0-0.3) 12/25/19 07:25 Unconjugated Bilirubin 0.4 mg/dL (0.0-1.1) 12/25/19 07:25 Delta Bilirubin 0.0 mg/dL (0.0-0.2) 12/25/19 07:25 AST 35 U/L (14-36) 12/25/19 07:25 ALT 10 U/L (4-34) 12/25/19 07:25 Alkaline Phosphatase 83 U/L (38-126) 12/25/19 07:25 Total Protein 7.3 g/dL (6.3-8.2) 12/25/19 07:25 Albumin 4.2 g/dL (3.5-5.0) 12/25/19 07:25 Triglycerides 101 mg/dL (<150) 12/25/19 07:25 Cholesterol 231 mg/dL (<200) H 12/25/19 07:25 LDL Cholesterol, Calc 153 mg/dL (0-99) H 12/25/19 07:25 HDL Cholesterol 58 mg/dL (40-60) 12/25/19 07:25 TSH 0.242 mIU/L (0.465-4.680) L 12/25/19 07:25 Urine Color Yellow 12/24/19 00:23 Urine Appearance Clear (Clear) 12/24/19 00:23 Urine pH 5.5 (5.0-8.0) 12/24/19 00:23 Ur Specific [place] 1.019 (1.001-1.035) 12/24/19 00:23 Urine Protein 1+ (Negative) H 12/24/19 00:23 Urine Glucose (UA) Negative (Negative) 12/24/19 00: Urine Ketones 2+ (Negative) H 12/24/19 00:23 Urine Blood Negative (Negative) 12/24/19 00: Urine Nitrite Negative (Negative) 12/24/19 00: Urine Bilirubin Negative (Negative) 12/24/19 00: Urine Urobilinogen <2.0 mg/dL (<2.0) 12/24/19 00:23 Ur Leukocyte Esterase Trace (Negative) H 12/24/19 00:23 Urine RBC 1 /hpf (0-5) 12/24/19 00:23 Urine WBC 6 /hpf (0-5) H 12/24/19 00:23 Ur Squamous Epith Cells <1 /hpf (0-4) 12/24/19 00:23 Urine Bacteria Rare /hpf (None) H 12/24/19 00:23 Hyaline Casts 10 /lpf (0-2) H 12/24/19 00:23 Urine Mucus Moderate /hpf (None) H 12/24/19 00:23 Salicylates <1.0 mg/dL 12/24/19 00:34 Urine Opiates Screen Not Detected (NotDetected) 12/24/19 00:23 Ur Oxycodone Screen Not Detected (NotDetected) 12/24/19 00:23 Urine Methadone Screen Not Detected (NotDetected) 12/24/19 00:23 Ur Propoxyphene Screen Not Detected (NotDetected) 12/24/19 00:23 Acetaminophen <10.0 ug/mL 12/24/19 00:34 Ur Barbiturates Screen Not Detected (NotDetected) 12/24/19 00:23 U Tricyclic Antidepress Not Detected (NotDetected) 12/24/19 00:23 Ur Phencyclidine Scrn Not Detected (NotDetected) 12/24/19 00:23 Ur Amphetamines Screen Not Detected (NotDetected) 12/24/19 00:23 U Methamphetamines Scrn Not Detected (NotDetected) 12/24/19 00:23 U Benzodiazepines Scrn Not Detected (NotDetected) 12/24/19 00:23 Urine Cocaine Screen Not Detected (NotDetected) 12/24/19 00:23 U Marijuana (THC) Screen Not Detected (NotDetected) 12/24/19 00:23 Serum Alcohol <10 mg/dL 12/24/19 00:34 Vital Signs Temp 97.6 F 12/29/19 22:20 Pulse 65 12/30/19 00:05 Resp 17 12/29/19 06:25 BP 136/58 12/30/19 00:05 Pulse Ox 97 12/29/19 06:25 Patient Condition at Discharge: Stable Plan - Discharge Summary New Discharge Prescriptions: New Aspirin 81 mg PO DAILY 30 Days chew traZODone HCL [Desyrel] 25 mg PO HS 30 Days tab Atorvastatin [Lipitor] 40 mg PO HS 30 Days tab Acetaminophen Tab [Tylenol] 650 mg PO Q4HR PRN tab PRN Reason: Pain/Discomfort Sertraline [Zoloft] 100 mg PO DAILY 30 Days tab Discharge Medication List Acetaminophen Tab [Tylenol] 650 mg PO Q4HR PRN tab 12/30/19 [Rx] Aspirin 81 mg PO DAILY 30 Days chew 12/30/19 [Rx] Atorvastatin [Lipitor] 40 mg PO HS 30 Days tab 12/30/19 [Rx] Sertraline [Zoloft] 100 mg PO DAILY 30 Days tab 12/30/19 [Rx] traZODone HCL [Desyrel] 25 mg PO HS 30 Days tab 12/30/19 [Rx] Follow up Appointment(s)/Referral(s): [facility] - 01/06/20 5:00 pm ([facility]) Kike Cerna DO [STAFF PHYSICIAN] - 1 Week Patient Instructions/Handouts: Mood Disorders (DC) Activity/Diet/Wound Care/Special Instructions: Activity and diet as tolerated. Avoid the use of street drugs and alcohol. Take all medications as prescribed. When you are in need of refills on your medications please contact your medical provider and/or outpatient psychiatrist to have this done. Please go to scheduled outpatient appointment for aftercare treatment. If symptoms return or become worse, call the crisis line at and/or go to the nearest emergency room for evaluation. Discharge Disposition: HOME SELF-CARE
== END 2019-12-30 11:55 | disposition home or self-care (01) | DRG 881 ==
LOC: EC 23:37 → 3MHU 12-24 04:21
PROVIDERS: ADMIT Psychiatry & Neurology Psychiatry; ATTEND Psychiatry & Neurology Psychiatry
DX: F32.9 Major depressive disorder, single episode, unspecified (principal); R45.851 Suicidal ideations; E78.5 Hyperlipidemia, unspecified; F17.200 Nicotine dependence, unspecified, uncomplicated; F41.9 Anxiety disorder, unspecified; G47.00 Insomnia, unspecified; H53.40 Unspecified visual field defects; I10 Essential (primary) hypertension; H53.461 Homonymous bilateral field defects, right side; Z79.899 Other long term (current) drug therapy; I69.320 Aphasia following cerebral infarction; Z88.0 Allergy status to penicillin
CPT/HCPCS: 36415; 80048; 80061; 80076; 80306; 80320; 80329; 81001; 82075; 83036; 83520; 84443; 85025; 99285